=== PATIENT | female | born 1950 | race African-American/Black ===

== ENCOUNTER → 2016-10-17 | Outpatient (CLI) | payer MEDICARE, OTHER | LOC: WI 14:37 | PROVIDERS: ATTEND Internal Medicine | DX: Z12.31 Encounter for screening mammogram for malignant neoplasm of breast (principal) | CPT/HCPCS: 77067; G0202 ==

== ENCOUNTER → 2016-10-27 | Outpatient (CLI) | payer MEDICARE, OTHER | LOC: RAD 07:52 | PROVIDERS: ATTEND Student in an Organized Health Care Education/Training Program | DX: R91.1 Solitary pulmonary nodule (principal) | CPT/HCPCS: 71260; 82565 ==

== ENCOUNTER → 2017-10-12 | Outpatient (CLI) | payer MEDICARE, OTHER ==
--- NOTE | 2017-10-12 16:22 | WOMENS IMAGING REPORT ---
EXAM DESCRIPTION: BONE DENSITY HIP/SPINE COMPLETED DATE/TIME: 10/12/2017 1:54 pm REASON FOR STUDY: OSTEOPOROSIS Z12.31 ENCNTR SCREEN MAMMOGRAM FOR MALIGNANT NEOPLASM OF JOSE RAMON M81.0 AGE-RELATED OSTEOPOROSIS W/O CURRENT PATHOLOGICAL FRAC COMPARISON: None. TECHNIQUE: Dual-Energy X-ray Absorptiometry (DEXA) of the AP Spine and Hip. LIMITATIONS: None. FINDINGS: LUMBAR SPINE: The bone mineral density (BMD) measured from L1-L4 in the AP projection correlates with a T-score of -0.5, which is normal as defined by the World Health Organization. HIP: The bone mineral density (BMD) measured in the left hip correlates with a T-score of -0.3, which is n ormal as defined by the World Health Organization. IMPRESSION: 1. LUMBAR SPINE: Normal 2. HIP: Normal COMMENT: The World Health Organization defines low BMD as follows: T-score: Normal: Greater than -1.0 Osteopenia: Between -1.0 and -2.5 Osteoporosis: Less than -2.5 without fractures Established osteoporosis: Less than -2.5 with fractures In general, you may wish to consider: Diagnosis Treatment Follow-up DEXA Normal BMD Prevention 2-3 years Osteopenia Prevention/Therapy 1-2 years Osteoporosis Therapy Yearly TECHNICAL DOCUMENTATION: JOB ID: [id number] [employer]- All Rights Reserved Reading location - IP/workstation name: [email or web address]
--- NOTE | 2017-10-12 16:23 | WOMENS IMAGING REPORT ---
EXAM DESCRIPTION: 3D SCREENING MAMMO BILAT COMPLETED DATE/TIME: 10/12/2017 1:54 pm REASON FOR STUDY: SCREENING MAMMO Z12.31 ENCNTR SCREEN MAMMOGRAM FOR MALIGNANT NEOPLASM OF JOSE RAMON M81. 0 AGE-RELATED OSTEOPOROSIS W/O CURRENT PATHOLOGICAL FRAC COMPARISON: 10/17/2016 and 08/22/2015. TECHNIQUE: Standard craniocaudal and mediolateral oblique views of each breast recorded using digita l acquisition and breast tomosynthesis. LIMITATIONS: None. FINDINGS: RIGHT BREAST MASSES: No suspicious masses. CALCIFICATIONS: No new or suspicious calcifications. ARCHITECTURAL DISTORTION: None. DEVELOPING DENSITY: None. ASYMMETRY: None noted. OTHER: No other significant findings. LEFT BREAST MASSES: No suspicious masses. CALCIFICATIONS: No new or suspicious calcifications. ARCHITECTURAL DISTORTION: None. DEVELOPING DENSITY: Developing density in the upper inner breast, located 7 to 8 cm from the nipple. ASYMMETRY: None noted. OTHER: No other significant findings. Read with the assistance of CAD. .[facility] - R2 Cenova Version 1.3 .[facility] Imaging - R2 Cenova Version 1.3 .[facility] - R2 Cenova Version 2.4 .[facility] - R2 Cenova Version 2.4 .[facility] - R2 Lamp Shade Joiner Version 9.2 IMPRESSION: Developing density in the left breast. Stable mammographic appearance of the right ade st. BREAST DENSITY: b. There are scattered areas of fibroglandular density. BIRAD: 0 Incomplete: Needs Additional Imaging Evaluation and/or prior Mammograms for Comparison. RECOMMENDATION: RECOMMENDED FOLLOW-UP: Recommend additional evaluation with compression breast tomos ynthesis views of the left breast and ultrasound of the left breast. Recommend routine screening brad mography of the right breast. The patient will be contacted for additional imaging. COMMENT: The patient has been notified of the results by letter per SA requirements. Additional no tification policies are in place for contacting patient with suspicious or incomplete findings. Quality ID #[id number]: The [employer] recommends an annual screening mammogram for women aged 40 years or over. This facility utilizes a reminder system to ensure that all patients receive reminder letters, and/or direct phone calls for appointments. This includes reminders for routine scr eening mammograms, diagnostic mammograms, or other Breast Imaging Interventions when appropriate. Th is patient will be placed in the appropriate reminder system. The [employer] (ACR) has developed recommendations for screening MRI of the breast s in certain patient populations, to be used in conjunction with mammography. Breast MRI surveillanc e may be appropriate for women with more than 20% lifetime risk of developing breast cancer as deter mined by genetic testing, significant family history of the disease, or history of mantle radiation f or Hodgkins Disease. ACR Practice Guidelines 2008. DBT Technology DBT is a type of tomographic mammography. With conventional mammography, overlapping breast tissue ma y make lesions difficult to detect, even with good compression. DBT uses an x-ray tube that rotates a round the breast, taking images at different angles. These images are then combined to create thin sl ices of the breast that the radiologist can view as a 3D reconstruction. The Blendagram unit can perform full-field digital mammograms (2D imaging); or DBT (3D imaging); or both, in a combination mode that quickly performs both the mammogram and the tomosynthesis scan while the breast is still compressed. PQRS 6045F: Fluoroscopic imaging is not utilized for breast tomosynthesis. TECHNICAL DOCUMENTATION: FINDING NUMBER: (1) ASSESSMENT: (1) JOB ID: [id number] [employer]- All Rights Reserved Reading location - IP/workstation name: [email or web address]
== END ==
LOC: WI 13:22
PROVIDERS: ATTEND Student in an Organized Health Care Education/Training Program
DX: Z12.31 Encounter for screening mammogram for malignant neoplasm of breast (principal); M81.0 Age-related osteoporosis without current pathological fracture
CPT/HCPCS: 77063; 77067; 77080

== ENCOUNTER → 2017-10-15 | Outpatient (CLI) | payer MEDICARE, OTHER ==
--- NOTE | 2017-10-15 11:33 | WOMENS IMAGING REPORT ---
EXAM DESCRIPTION: 3D DX MAMMO LEFT UNILAT; U/S BREAST UNILAT LIMITED COMPLETED DATE/TIME: 10/15/2017 10:02 am; 10/15/2017 10:49 am REASON FOR STUDY: UNSPECIFIED LUMP; N63.22; LEFT BREAST DENSITY COMPARISON: 10/12/2017 and 10/17/2016. TECHNIQUE: MLO, cc, and compression MLO and CC images acquired with tomosynthesis. LIMITATIONS: None. FINDINGS: BREAST: left MASSES: No suspicious masses. CALCIFICATIONS: No new or suspicious calcifications. ARCHITECTURAL DISTORTION: None. DEVELOPING DENSITY: Developing density seen on previous screening mammography is less conspicuous on additional imaging. ASYMMETRY: None noted. OTHER: No other significant findings. BREAST ULTRASOUND: TECHNIQUE: Static and dynamic grayscale images acquired of the left breast in the specific areas of c linical/mammographic concern. Selected color Doppler images recorded. ELASTOGRAPHY PERFORMED: No. LIMITATIONS: None. FINDINGS: MASS: 3 to 4 mm hypoechoic area in the 12 o'clock location with distal shadowing. ELASTOGRAPHY CHARACTERISTICS: Not applicable. OTHER: No other significant finding. IMPRESSION: Developing density is less conspicuous on additional imaging with no discrete underlying lesion. The finding on ultrasound appears to be a benign calcification in this region, small calcif ied oil cyst. BREAST DENSITY: b. There are scattered areas of fibroglandular density. BIRAD: 3 Probably benign finding. Initial short-interval follow-up suggested. RECOMMENDATION: RECOMMENDED FOLLOW UP: Birads 3: The patient will return in 6 months for follow-up i holger. SPECIFIC INTERVENTION/IMAGING/CONSULTATION RECOMMENDED:The patient will return for 6 month follow-up diagnostic mammography(tomosynthesis) and targeted breast ultrasound. COMMUNICATION:The imaging findings were not discussed with the patient. Her referring provider has be en notified of the findings. COMMENT: The patient has been notified of the results by letter per SA requirements. Additional no tification policies are in place for contacting patient with suspicious or incomplete findings. Quality ID #225: The [employer] recommends an annual screening mammogram for women aged 40 years or over. This facility utilizes a reminder system to ensure that all patients receive reminder letters, and/or direct phone calls for appointments. This includes reminders for routine scr eening mammograms, diagnostic mammograms, or other Breast Imaging Interventions when appropriate. Th is patient will be placed in the appropriate reminder system. The [employer] (ACR) has developed recommendations for screening MRI of the breast s in certain patient populations, to be used in conjunction with mammography. Breast MRI surveillanc e may be appropriate for women with more than 20% lifetime risk of developing breast cancer as deter mined by genetic testing, significant family history of the disease, or history of mantle radiation f or Hodgkins Disease. ACR Practice Guidelines 2008. DBT Technology DBT is a type of tomographic mammography. With conventional mammography, overlapping breast tissue ma y make lesions difficult to detect, even with good compression. DBT uses an x-ray tube that rotates a round the breast, taking images at different angles. These images are then combined to create thin sl ices of the breast that the radiologist can view as a 3D reconstruction. The [employer] unit can perform full-field digital mammograms (2D imaging); or DBT (3D imaging); or both, in a combination mode that quickly performs both the mammogram and the tomosynthesis scan while the breast is still compressed. PQRS 6045F: Fluoroscopic imaging is not utilized for breast tomosynthesis. TECHNICAL DOCUMENTATION: FINDING NUMBER: (1) ASSESSMENT: (1) JOB ID: [id number] [employer]- All Rights Reserved Reading location - IP/workstation name: [email or web address]
== END ==
LOC: WI 09:40
PROVIDERS: ATTEND Student in an Organized Health Care Education/Training Program
DX: N63.22 Unspecified lump in the left breast, upper inner quadrant (principal)
CPT/HCPCS: 76642; 77065; G0279

== ENCOUNTER → 2018-06-01 | Outpatient (CLI) | payer MEDICARE, OTHER ==
--- NOTE | 2018-06-01 12:18 | WOMENS IMAGING REPORT ---
EXAM DESCRIPTION: 3D DX MAMMO LEFT UNILAT; U/S BREAST UNILAT LIMITED COMPLETED DATE/TIME: 06/01/2018 10:41 am; 06/01/2018 11:04 am REASON FOR STUDY: LEFT BREAST 6 MONTH FOLLOW UP N63.22; LT BREAST 6 MONTH FOLLOW UP N63.22 N63.20 U NSPECIFIED LUMP IN THE LEFT BREAST, UNSPECIFIED QUAD COMPARISON: 10/15/2017, 10/12/2017, 10/17/2016, 08/22/2015, 01/18/2014, and 04/13/2012. TECHNIQUE: Standard craniocaudal and mediolateral oblique images of the breast recorded using digita l acquisition and breast tomosynthesis. Additional true lateral image acquired with tomosynthesis. LIMITATIONS: None. FINDINGS: BREAST: left MASSES: No suspicious masses. CALCIFICATIONS: No new or suspicious calcifications. ARCHITECTURAL DISTORTION: None. DEVELOPING DENSITY: None. ASYMMETRY: Vague focal density in the central breast. No discrete lesion on tomosynthesis images. OTHER: No other significant findings. Read with the assistance of CAD. .[facility] - R2 Cenova Version 1.3 .[facility] Imaging - R2 Cenova Version 1.3 .[facility] Imaging - R2 Cenova Version 2.4 .[facility] [place] R2 Cenova Version 2.4 .[facility] - R2 Chancellor Version 9.2 BREAST ULTRASOUND: TECHNIQUE: Static and dynamic grayscale images acquired of the left breast in the specific areas of c linical/mammographic concern. Selected color Doppler images recorded. ELASTOGRAPHY PERFORMED: No. LIMITATIONS: None. FINDINGS: MASS: In the superior breast there is a small 3 mm cyst as well as a focal 3 mm calcification. No ch roberto. No solid mass identified. Normal glandular tissue. ELASTOGRAPHY CHARACTERISTICS: Not applicable. OTHER: No other significant finding. IMPRESSION: Vague density in the central breast with no discrete mass on tomosynthesis images and no worrisome sonographic findings. This presumably represents an area of focal parenchyma. Similar fi ndings on several of the prior studies. BREAST DENSITY: b. There are scattered areas of fibroglandular density. BIRAD: 2 Benign findings. RECOMMENDATION: RECOMMENDED FOLLOW UP: Birads 1 or 2: The patient should resume routine screening . SPECIFIC INTERVENTION/IMAGING/CONSULTATION RECOMMENDED:No additional intervention/ imaging/consultati on needed at this time. COMMUNICATION:The imaging findings were not discussed with the patient. Her referring provider has be en notified of the findings. COMMENT: The patient has been notified of the results by letter per SA requirements. Additional no tification policies are in place for contacting patient with suspicious or incomplete findings. Quality ID #[id number]: The [employer] recommends an annual screening mammogram for women aged 40 years or over. This facility utilizes a reminder system to ensure that all patients receive reminder letters, and/or direct phone calls for appointments. This includes reminders for routine scr eening mammograms, diagnostic mammograms, or other Breast Imaging Interventions when appropriate. Th is patient will be placed in the appropriate reminder system. The [employer] (ACR) has developed recommendations for screening MRI of the breast s in certain patient populations, to be used in conjunction with mammography. Breast MRI surveillanc e may be appropriate for women with more than 20% lifetime risk of developing breast cancer as deter mined by genetic testing, significant family history of the disease, or history of mantle radiation f or Hodgkins Disease. ACR Practice Guidelines 2008. DBT Technology DBT is a type of tomographic mammography. With conventional mammography, overlapping breast tissue ma y make lesions difficult to detect, even with good compression. DBT uses an x-ray tube that rotates a round the breast, taking images at different angles. These images are then combined to create thin sl ices of the breast that the radiologist can view as a 3D reconstruction. The HackerHAND unit can perform full-field digital mammograms (2D imaging); or DBT (3D imaging); or both, in a combination mode that quickly performs both the mammogram and the tomosynthesis scan while the breast is still compressed. PQRS 6045F: Fluoroscopic imaging is not utilized for breast tomosynthesis. TECHNICAL DOCUMENTATION: FINDING NUMBER: (1) ASSESSMENT: (1) JOB ID: [id number] [employer]- All Rights Reserved Reading location - IP/workstation name: [facility]
--- NOTE | 2018-06-01 12:18 | WOMENS IMAGING REPORT ---
EXAM DESCRIPTION: 3D DX MAMMO LEFT UNILAT; U/S BREAST UNILAT LIMITED COMPLETED DATE/TIME: 06/01/2018 10:41 am; 06/01/2018 11:04 am REASON FOR STUDY: LEFT BREAST 6 MONTH FOLLOW UP N63.22; LT BREAST 6 MONTH FOLLOW UP N63.22 N63.20 U NSPECIFIED LUMP IN THE LEFT BREAST, UNSPECIFIED QUAD COMPARISON: 10/15/2017, 10/12/2017, 10/17/2016, 08/22/2015, 01/18/2014, and 04/13/2012. TECHNIQUE: Standard craniocaudal and mediolateral oblique images of the breast recorded using digita l acquisition and breast tomosynthesis. Additional true lateral image acquired with tomosynthesis. LIMITATIONS: None. FINDINGS: BREAST: left MASSES: No suspicious masses. CALCIFICATIONS: No new or suspicious calcifications. ARCHITECTURAL DISTORTION: None. DEVELOPING DENSITY: None. ASYMMETRY: Vague focal density in the central breast. No discrete lesion on tomosynthesis images. OTHER: No other significant findings. Read with the assistance of CAD. .[facility] - R2 Cenova Version 1.3 .[facility] Imaging - R2 Cenova Version 1.3 .[facility] Imaging - R2 Cenova Version 2.4 .[facility] - R2 Cenova Version 2.4 .[facility] - R2 Aircraft Cleaner Version 9.2 BREAST ULTRASOUND: TECHNIQUE: Static and dynamic grayscale images acquired of the left breast in the specific areas of c linical/mammographic concern. Selected color Doppler images recorded. ELASTOGRAPHY PERFORMED: No. LIMITATIONS: None. FINDINGS: MASS: In the superior breast there is a small 3 mm cyst as well as a focal 3 mm calcification. No ch roberto. No solid mass identified. Normal glandular tissue. ELASTOGRAPHY CHARACTERISTICS: Not applicable. OTHER: No other significant finding. IMPRESSION: Vague density in the central breast with no discrete mass on tomosynthesis images and no worrisome sonographic findings. This presumably represents an area of focal parenchyma. Similar fi ndings on several of the prior studies. BREAST DENSITY: b. There are scattered areas of fibroglandular density. BIRAD: 2 Benign findings. RECOMMENDATION: RECOMMENDED FOLLOW UP: Birads 1 or 2: The patient should resume routine screening . SPECIFIC INTERVENTION/IMAGING/CONSULTATION RECOMMENDED:No additional intervention/ imaging/consultati on needed at this time. COMMUNICATION:The imaging findings were not discussed with the patient. Her referring provider has be en notified of the findings. COMMENT: The patient has been notified of the results by letter per SA requirements. Additional no tification policies are in place for contacting patient with suspicious or incomplete findings. Quality ID #225: The [employer] recommends an annual screening mammogram for women aged 40 years or over. This facility utilizes a reminder system to ensure that all patients receive reminder letters, and/or direct phone calls for appointments. This includes reminders for routine scr eening mammograms, diagnostic mammograms, or other Breast Imaging Interventions when appropriate. Th is patient will be placed in the appropriate reminder system. The [employer] (ACR) has developed recommendations for screening MRI of the breast s in certain patient populations, to be used in conjunction with mammography. Breast MRI surveillanc e may be appropriate for women with more than 20% lifetime risk of developing breast cancer as deter mined by genetic testing, significant family history of the disease, or history of mantle radiation f or Hodgkins Disease. ACR Practice Guidelines 2008. DBT Technology DBT is a type of tomographic mammography. With conventional mammography, overlapping breast tissue ma y make lesions difficult to detect, even with good compression. DBT uses an x-ray tube that rotates a round the breast, taking images at different angles. These images are then combined to create thin sl ices of the breast that the radiologist can view as a 3D reconstruction. The EVOF[employer] unit can perform full-field digital mammograms (2D imaging); or DBT (3D imaging); or both, in a combination mode that quickly performs both the mammogram and the tomosynthesis scan while the breast is still compressed. PQRS 6045F: Fluoroscopic imaging is not utilized for breast tomosynthesis. TECHNICAL DOCUMENTATION: FINDING NUMBER: (1) ASSESSMENT: (1) JOB ID: [id number] [employer]- All Rights Reserved Reading location - IP/workstation name: [facility]
== END ==
LOC: WI 13:48
PROVIDERS: ATTEND Student in an Organized Health Care Education/Training Program
DX: N60.02 Solitary cyst of left breast (principal)
CPT/HCPCS: 76642; 77065; G0279

== ENCOUNTER 2019-02-25 17:37 | Observation (INO) | payer MEDICARE ==
--- NOTE | 2019-02-25 18:07 | ER Document Report ---
ED Medical Screen (RME) - General Chief Complaint: Altered Mental Status Stated Complaint: WEAKNESS Time Seen by Provider: 02/25/19 17:58 Primary Care Provider: BONNIE JENSEN DO [Primary Care Provider] - Follow up as needed Notes: Patient is a 68-year-old female presents to the emergency department with her granddaughter for change in mental status. Granddaughter states around 11:00 this morning was last time she saw the patient "normal." States the patient stated she was going to take a nap. Granddaughter states she was out of the house for most of the day until she returned this afternoon. States this afternoon the patient was "not making any sense." Granddaughter states the patient was very slow to answer questions and feels as though her speech was slurred. Granddaughter is unsure of exactly what medications the patient is on if the patient took any medications today. GENERAL: Alert, slow to respond, aphasic. LUNGS: Clear to auscultation bilaterally, no wheezes, rales, or rhonchi. No respiratory distress. Patient is unable to tell me the correct date. Her speech is slowed as though she is intoxicated. I have greeted and performed a rapid initial assessment of this patient. A co mprehensive ED assessment and evaluation of the patient, analysis of test results and completion of the medical decision making process will be conducted by additional ED providers. I have specifically instructed the patient or family members with the patient to immediately return to any nursing staff should anything change in the patient's condition or with their chief complaint. This medical record was dictated with voice recognizing software. There may be grammatical, syntax errors that are unintended. TRAVEL OUTSIDE OF THE [place] IN LAST 30 DAYS: No - Related Data Allergies/Adverse Reactions: MOMO Inhibitors [Momo Inhibitors] Allergy (Verified 11/15/14 09:22) lisinopril [Lisinopril] Allergy (Verified 11/15/14 09:22) Past Medical History - Past Medical History Cardiac Medical History: Reports: Hx Hypercholesterolemia, Hx Hypertension Psychiatric Medical History: Reports: Hx Depression Past Surgical History: Reports: Hx Neurologic Surgery - acoustic neuroma - Immunizations Hx Diphtheria, Pertussis, Tetanus Vaccination: No Physical Exam - Vital signs Vitals: Temp Pulse Resp BP Pulse Ox 98.9 F 101 H 20 128/71 H 92 02/25/19 17:46 02/25/19 17:46 02/25/19 17:46 02/25/19 17:46 02/25/19 17:46 Course - Vital Signs Vital signs: Temp Pulse Resp BP Pulse Ox 98.9 F 101 H 20 128/71 H 92 02/25/19 17:46 02/25/19 17:46 02/25/19 17:46 02/25/19 17:46 02/25/19 17:46 Doctor's Discharge - Discharge Referrals: BONNIE JENSEN, [Primary Care Provider] - Follow up as needed
--- NOTE | 2019-02-25 18:32 | RADIOLOGY REPORT (SQ) ---
EXAM DESCRIPTION: CT HEAD WITHOUT COMPLETED DATE/TIME: 02/25/2019 6:22 pm REASON FOR STUDY: LOC COMPARISON: None. TECHNIQUE: Axial images acquired through the brain without intravenous contrast. Images reviewed wi th bone, brain and subdural windows. 09/16/2012 Images stored on PACS. All CT scanners at this facility use dose modulation, iterative reconstruction, and/or weight based d osing when appropriate to reduce radiation dose to as low as reasonably achievable (ALARA). [facility]: Dose Right [facility]: CareDose [facility]: Dose Right [facility]: Teradose 4D [facility]: Smart [employer] RADIATION DOSE: CT Rad equipment meets quality standard of care and radiation dose reduction techniq ues were employed. CTDIvol: 53.2 mGy. DLP: 937 mGy-cm. mGy. LIMITATIONS: None. FINDINGS: VENTRICLES: Normal size and contour. CEREBRUM: No masses. No hemorrhage. No midline shift. No evidence for acute infarction. Normal gra y/white matter differentiation. No areas of low density in the white matter. CEREBELLUM: No masses. No hemorrhage. No alteration of density. No evidence for acute infarction. EXTRAAXIAL SPACES: No fluid collections. No masses. ORBITS AND GLOBE: No intra- or extraconal masses. Normal contour of globe without masses. CALVARIUM: No fracture. PARANASAL SINUSES: No fluid or mucosal thickening. SOFT TISSUES: No mass or hematoma. OTHER: No other significant finding. IMPRESSION: NORMAL BRAIN CT WITHOUT CONTRAST. EVIDENCE OF ACUTE STROKE: NO. COMMENT: Quality ID # [id number]: Final reports with documentation of one or more dose reduction techniques (e.g., Automated exposure control, adjustment of the mA and/or kV according to patient size, use of iterative reconstruction technique) TECHNICAL DOCUMENTATION: JOB ID: [id number] [employer]- All Rights Reserved Reading location - IP/workstation name: [email or web address]
--- NOTE | 2019-02-25 18:32 | RADIOLOGY REPORT (SQ) ---
EXAM DESCRIPTION: CHEST SINGLE VIEW COMPLETED DATE/TIME: 02/25/2019 6:24 pm REASON FOR STUDY: ALOC COMPARISON: 10/29/2009 EXAM PARAMETERS: NUMBER OF VIEWS: One view. TECHNIQUE: Single frontal radiographic view of the chest acquired. RADIATION DOSE: NA LIMITATIONS: None. FINDINGS: LUNGS AND PLEURA: No opacities, masses or pneumothorax. No pleural effusion. MEDIASTINUM AND HILAR STRUCTURES: No masses. Contour normal. HEART AND VASCULAR STRUCTURES: Heart normal in size. Normal vasculature. BONES: No acute findings. HARDWARE: None in the chest. OTHER: No other significant finding. IMPRESSION: NO ACUTE RADIOGRAPHIC FINDING IN THE CHEST. TECHNICAL DOCUMENTATION: JOB ID: [id number] [employer]- All Rights Reserved Reading location - IP/workstation name: [email or web address]
--- NOTE | 2019-02-25 19:44 | ER Document Report ---
ED General - General Chief Complaint: Altered Mental Status Stated Complaint: WEAKNESS Time Seen by Provider: 02/25/19 17:58 Notes: Patient is a 68-year-old female that presents to the emergency department for chief complaint of slurred speech and weakness. Patient apparently was last seen normal around 1030 this morning, when her family left to leave the house, other out they called to see how she was doing and she did not pecan picker the kee[place] ne, so they came back to the house, and when they found her she was having slurred speech, seemed somewhat confused, slow to answer questions, and they thought they noticed a right-sided facial droop as well so we decided to bring her to the emergency department. She has no prior history of stroke, at this time she is able to answer some questions, but is slow to answer them, and she does have slurred speech. She has a history of hypertension, and reports a history of acoustic neuroma status post surgery for that. She denies having any headache, lightheadedness, dizziness, but does state she has some numbness in her right leg, and feels weaker in her right leg compared to the left. She d enies having any chest pain, shortness of breath, difficulty breathing, nausea or vomiting. Past Medical History: Hypertension Past Surgical History: Surgery for acoustic neuroma Social History: Denies tobacco, alcohol or drug use. Family History: Reviewed and noncontributory for presenting illness Allergies: Reviewed, see documented allergy list. REVIEW OF SYSTEMS: Other than noted above, the 12 point review of systems was reviewed with the patient and were negative, all pertinent findings are included in the HPI. PHYSICAL EXAMINATION: Vital signs reviewed, nursing noted reviewed. GENERAL: Well-appearing, well-nourished and in no acute distress. HEAD: Atraumatic, normocephalic. EYES: Eyes appear normal, extraocular movements intact, sclera anicteric, conjunctiva are normal. ENT: nares patent, oropharynx clear without exudates. Moist mucous membranes. NECK: Normal range of motion, supple without lymphadenopathy LUNGS: Breath sounds clear to auscultation bilaterally and equal. No wheezes rales or rhonchi. HEART: Regular rate and rhythm without murmurs ABDOMEN: Soft, nontender, normoactive bowel sounds. No rebound, guarding, or rigidity. No masses appreciated. EXTREMITIES: Nontender, good range of motion, no pitting or edema. NEUROLOGICAL: NIH stroke scale score: 4, for mild dysarthria, mild aphasia, slight decreased sensation in the right lower extremity compared to the left, and for mild weakness in the right lower extremity compared to the left. With some drift. Patient is alert and oriented, slow to answer questions, but seems to understand, there is no inattention, visual deficits, or gaze palsy. PSYCH: Normal mood, normal affect. SKIN: Warm, Dry, normal turgor, no rashes or lesions noted on exposed skin TRAVEL OUTSIDE OF THE [place] IN LAST 30 DAYS: No - Related Data Allergies/Adverse Reactions: MOMO Inhibitors [Momo Inhibitors] Allergy (Verified 11/15/14 09:22) lisinopril [Lisinopril] Allergy (Verified 11/15/14 09:22) Past Medical History - Social History Smoking Status: Never Smoker Chew tobacco use (# tins/day): No Frequency of alcohol use: Occasional Drug Abuse: None Family History: None Patient has suicidal ideation: No Patient has homicidal ideation: No - Past Medical History Cardiac Medical History: Reports: Hx Hypercholesterolemia, Hx Hypertension Renal/ Medical History: Denies: Hx Peritoneal Dialysis Psychiatric Medical History: Reports: Hx Depression Past Surgical History: Reports: Hx Neurologic Surgery - acoustic neuroma - Immunizations Hx Diphtheria, Pertussis, Tetanus Vaccination: No Physical Exam - Vital signs Vitals: Temp Pulse Resp BP Pulse Ox 98.9 F 101 H 20 128/71 H 92 02/25/19 17:46 02/25/19 17:46 02/25/19 17:46 02/25/19 17:46 02/25/19 17:46 Course - Re-evaluation Re-evalutation: Patient seen and examined vital signs reviewed. Laboratory data and imaging were ordered as appropriate for the patient's presenting symptoms and complaint, with consideration of any critical or life threatening conditions that may be associated with their obtained history and exam as noted above. Results were reviewed when available and demonstrated negative CT imaging of the brain, blood pressure was remaining stable, blood work was otherwise unremarkable The patient was re-evaluated and was stable, symptoms seem to be slowly improving, patient was not a TPA candidate, she was nearly 6 hours out from her onset of symptoms, her last seen normal, and seems to be improving, and has a low NIH stroke scale score. Evaluation was most consistent with acute CVA, causing dysarthria, and aphasia and right-sided sensory deficit Results were discussed with the patient at this point after careful consideration I feel that that patient should be admitted to the hospital. This was discussed with the patient that it is in the best interest for their care to be admitted for further evaluation and management. Patient agreed with this plan of care. A call was placed to the admitting physician, Dr. Fulton who gra ciously accepted the patient onto their service. *Note is created using voice recognition software and may contain spelling, syntax or grammatical errors. Laboratory 02/25/19 02/25/19 02/25/19 18:06 20:02 20:02 WBC 7.0 RBC 4.35 Hgb 12.5 Hct 37.0 MCV 85 MCH 28.6 MCHC 33.7 RDW 15.4 H Plt Count 289 Seg Neutrophils % 41.6 L Lymphocytes % 47.6 H Monocytes % 7.3 Eosinophils % 1.8 Basophils % 1.7 Absolute Neutrophils 2.9 Absolute Lymphocytes 3.3 Absolute Monocytes 0.5 Absolute Eosinophils 0.1 Absolute Basophils 0.1 PT INR APTT Sodium 140.1 Potassium 4.3 Chloride 109 H Carbon Dioxide 26 Anion Gap 5 BUN 26 H Creatinine 0.73 Est GFR ( Amer) > 60 Est GFR (Non-Af Amer) > 60 Glucose 93 POC Glucose 108 Calcium 8.8 Total Bilirubin 0.1 L Direct Bilirubin 0.1 Neonat Total Bilirubin Not Reportable Neonat Direct Bilirubin Not Reportable Neonat Indirect Bili Not Reportable AST 20 ALT 28 Alkaline Phosphatase 58 Total Protein 6.5 Albumin 3.7 Serum Alcohol < 10 02/25/19 20:02 WBC RBC Hgb Hct MCV MCH MCHC RDW Plt Count Seg Neutrophils % Lymphocytes % Monocytes % Eosinophils % Basophils % Absolute Neutrophils Absolute Lymphocytes Absolute Monocytes Absolute Eosinophils Absolute Basophils PT 12.5 INR 0.93 APTT 24.7 Sodium Potassium Chloride Carbon Dioxide Anion Gap BUN Creatinine Est GFR ( Amer) Est GFR (Non-Af Amer) Glucose POC Glucose Calcium Total Bilirubin Direct Bilirubin Neonat Total Bilirubin Neonat Direct Bilirubin Neonat Indirect Bili AST ALT Alkaline Phosphatase Total Protein Albumin Serum Alcohol Chest X-Ray 02/25/19 00:00 IMPRESSION: NO ACUTE RADIOGRAPHIC FINDING IN THE CHEST. Head CT 02/25/19 18:03 IMPRESSION: NORMAL BRAIN CT WITHOUT CONTRAST. EVIDENCE OF ACUTE STROKE: NO. 0 - Vital Signs Vital signs: Temp Pulse Resp BP Pulse Ox 98.9 F 95 16 118/72 100 02/25/19 17:46 02/25/19 18:42 02/25/19 18:42 02/25/19 18:42 02/25/19 18:42 - Laboratory Result Diagrams: 02/25/19 20:02 02/25/19 20:02 Laboratory results interpreted by me: 02/25/19 02/25/19 20:02 20:02 RDW 15.4 H Seg Neutrophils % 41.6 L Lymphocytes % 47.6 H Chloride 109 H BUN 26 H Total Bilirubin 0.1 L Discharge - Discharge Clinical Impression: Acute CVA (cerebrovascular accident), Dysarthria Condition: Stable Disposition: ADMITTED INPATIENT Admitting Provider: Donaldo (Hospitalist) Unit Admitted: [facility]
[2019-02-25 20:18] LABS: ABSOLUTE BASOPHILS # (AUTO) 0.1 10^3/uL (0.0-0.2); ABSOLUTE EOSINOPHILS # (AUTO) 0.1 10^3/uL (0.0-0.6); ABSOLUTE LYMPHOCYTES (AUTO) 3.3 10^3/uL (0.5-4.7); ABSOLUTE MONOCYTES (AUTO) 0.5 10^3/uL (0.1-1.4); ABSOLUTE NEUT (AUTO) 2.9 10^3/uL (1.7-8.2); BASOPHILS % (AUTO) 1.7 % (0-2); EOSINOPHILS % (AUTO) 1.8 % (0-6); HEMOGLOBIN 12.5 g/dL (12.0-15.5); LYMPHOCYTES % (AUTO) 47.6 % (13-45); MEAN CORPUSCULAR HEMOGLOBIN 28.6 pg (27.0-33.4); MEAN CORPUSCULAR HGB CONC 33.7 g/dL (32.0-36.0); MEAN CORPUSCULAR VOLUME 85 fl (80-97); MONOCYTES % (AUTO) 7.3 % (3-13); PLATELET COUNT 289 10^3/uL (150-450); RED BLOOD COUNT 4.35 10^6/uL (3.72-5.28); RED CELL DISTRIBUTION WIDTH 15.4 % (11.5-14.0); SEGMENTED NEUTROPHILS % (AUTO) 41.6 % (42-78); TOTAL CELLS COUNTED % (AUTO) 100 %
[2019-02-25 20:29] LABS: INTERNATIONAL RATION (INR) 0.93; PROTHROMBIN TIME 12.5 SEC (11.4-15.4)
[2019-02-25 20:30] LABS: PARTIAL THROMBOPLASTIN TIME 24.7 SEC (23.5-35.8)
[2019-02-25 20:35] LABS: ALANINE AMINOTRANSFERASE 28 U/L (9-52); ALBUMIN 3.7 g/dL (3.5-5.0); ALKALINE PHOSPHATASE 58 U/L (38-126); ANION GAP 5 (5-19); ASPARTATE AMINO TRANSFERASE 20 U/L (14-36); BILIRUBIN,DIRECT 0.1 mg/dL (0.0-0.4); BILIRUBIN,TOTAL 0.1 mg/dL (0.2-1.3); BLOOD UREA NITROGEN 26 mg/dL (7-20); CALCIUM 8.8 mg/dL (8.4-10.2); CARBON DIOXIDE 26 mmol/L (22-30); CHLORIDE 109 mmol/L (98-107); GLUCOSE 93 mg/dL (75-110); POTASSIUM 4.3 mmol/L (3.6-5.0); TOTAL PROTEIN 6.5 g/dL (6.3-8.2)
[2019-02-25 20:37] LABS: ALCOHOL < 10 mg/dL (NONE DETECTED)
[2019-02-25] MEDS ORDERED: DOCUSATE SODIUM 100 MG CAPSULE PO PRN (22:24)
[2019-02-25] MEDS ORDERED: TEMAZEPAM 15 MG CAPSULE PO PRN (22:24)
[2019-02-25] MEDS ORDERED: ACETAMINOPHEN 325 MG TABLET PO PRN (22:24)
[2019-02-25] MEDS ORDERED: ACETAMINOPHEN 650 MG SUPP.RECT PR PRN (22:24)
[2019-02-25] MEDS ORDERED: ONDANSETRON HCL INJ/PF 4 MG/2 ML SDV IV PRN (22:24)
[2019-02-25] MEDS ORDERED: MAGNESIUM HYDROXIDE SUSP 30 ML UDCUP PO PRN (22:24)
[2019-02-25] MEDS ORDERED: METOPROLOL TARTRATE PF/INJ 5 MG/5 ML SDV IV PRN (22:35)
[2019-02-25] MEDS ORDERED: NALBUPHINE HCL INJ 10 MG/1 ML AMPULE IV PRN (22:35)
[2019-02-25] MEDS ORDERED: HYDRALAZINE HCL INJ/PF 20 MG/1 ML SDV IV PRN (22:35)
--- NOTE | 2019-02-25 23:13 | EKG REPORT ---
SEVERITY:- BORDERLINE ECG - SINUS RHYTHM BORDERLINE T ABNORMALITIES, INFERIOR LEADS : Confirmed by: Christian Pena 25-Feb-2019 23:12:41
[2019-02-26 01:45] LABS: APPEARANCE,URINE SLIGHTLY-CLOUDY; BILIRUBIN,URINE NEGATIVE (NEGATIVE); COLOR,URINE YELLOW; GLUCOSE, URINE NEGATIVE (NEGATIVE); KETONES,URINE NEGATIVE (NEGATIVE); LEUKOCYTE ESTERASE,URINE TRACE (NEGATIVE); NITRITE,URINE NEGATIVE (NEGATIVE); PROTEIN,URINE NEGATIVE (NEGATIVE); URINE SPECIFIC GRAVITY 1.025; UROBILINOGEN,URINE NEGATIVE mg/dL (<2.0)
[2019-02-26 02:19] LABS: URINE AMPHETAMINES SCREEN NEGATIVE; URINE BARBITURATES SCREEN NEGATIVE; URINE BENZODIAZEPINES SCREEN NEGATIVE; URINE COCAINE SCREEN NEGATIVE; URINE METHADONE SCREEN NEGATIVE; URINE PHENCYCLIDINE SCREEN NEGATIVE
[2019-02-26 02:26] LABS: URINE MARIJUANA (THC) SCREEN UNCONFIRMED POSITIVE
--- NOTE | 2019-02-26 02:30 | PDOC H&P ---
History of Present Illness Admission Date/PCP: 02/25/19 20:58 BONNIE JENSEN DO Patient complains of: Dysarthria History of Present Illness: JOHN STEINBERG is a 68 year old female who presents the emergency room with acute dysarthria. Patient and family relate that she was in her usual state of health at about 11 AM this morning when she went to lay down for a nap. This afternoon her granddaughter returned home after being out of the house for most of the day and found the patient seemingly confused and slurring her speech. Patient indicates that she has moderate to severe difficulty saying what she wants to say and notes that her speech seems slurred. The patient and granddaug hter deny any accompanying or associated symptoms. The patient denies prior similar episodes and has not identified any aggravating or ameliorating factors for her acute dysarthria. In the emergency room patient was found to have a CT scan of the head negative for acute intracranial hemorrhage. She was also found to have mild right-sided weakness as well as dysarthria and expressive aphasia. Patient was subsequently admitted hospital for further evaluation and treatment. Past Medical History Cardiac Medical History: Reports: Hypertension Denies: Coronary Artery Disease, Myocardial Infarction Pulmonary Medical History: Denies: Asthma, Chronic Obstructive Pulmonary Disease (COPD) EENT Medical History: Denies: Cataracts, Ears - Hearing aids Neurological Medical History: Denies: Hemorrhagic CVA, Ischemic CVA, Multiple Sclerosis, Seizures Endocrine Medical History: Reports: Obesity Denies: Diabetes Mellitus Type 1, Diabetes Mellitus Type 2, Hyperthyroidism, Hypothyroidism Renal/ Medical History: Denies: Chronic Kidney Disease, Nephrolithiasis Malignancy Medical History: Reports: None GI Medical History: Denies: Cirrhosis, Hepatitis Musculoskeltal Medical History: Reports: Arthritis - Degenerative arthritis of the spine Denies: Fibromyalgia Skin Medical History: Denies: Eczema, Psoriasis Psychiatric Medical History: Reports: Depression Denies: Alcohol Dependency, Substance Abuse, Tobacco Dependency Traumatic Medical History: Reports: None Hematology: Denies: Anemia, Bleeding Tendencies Infectious Medical History: Reports: None Past Surgical History Past Surgical History: Reports: Tubal Ligation, Other - Right acoustic neuroma Social History Information Source: Patient Lives with: Family Smoking Status: Former Smoker - Remote history Frequency of Alcohol Use: None Hx Recreational Drug Use: Yes - uses for pain Drugs: Marijuana Hx Prescription Drug Abuse: No - Advance Directive Resuscitation Status: Full Code Surrogate healthcare decision maker:: Javier Steinberg Family History Family History: CAD, DM, Hypertension, Other - Congestive heart failure. denies: Malignancy Parental Family History Reviewed: Yes Children Family History Reviewed: No Sibling(s) Family History Reviewed.: Yes Medication/Allergy Home Medications: Clonidine HCl [Catapres 0.1 mg Tablet] 0.1 mg PO TID 02/28/13 Fluoxetine HCl [Prozac] 40 mg PO DAILY 02/28/13 Allergies/Adverse Reactions: MOMO Inhibitors [Momo Inhibitors] Allergy (Verified 11/15/14 09:22) lisinopril [Lisinopril] Allergy (Verified 11/15/14 09:22) Review of Systems Constitutional: ABSENT: chills, fever(s) Eyes: ABSENT: visual disturbances, other - Eye pain Ears: ABSENT: hearing changes, other - Ear pain Nose, Mouth, and Throat: ABSENT: mouth pain, sore throat Cardiovascular: ABSENT: chest pain, dyspnea on exertion, palpitations Respiratory: ABSENT: cough, dyspnea Gastrointestinal: ABSENT: abdominal pain, constipation, diarrhea, nausea, vomiting Musculoskeletal: ABSENT: back pain, joint swelling, muscle weakness Integumentary: ABSENT: lesions, rash Neurological: PRESENT: as per HPI, abnormal speech - Slow and slurred speech, confusion - Difficulty saying what she means. ABSENT: abnormal gait, abnormal movements, convulsions, focal weakness, numbness, paresthesias, tingling Psychiatric: PRESENT: depression. ABSENT: anxiety Endocrine: ABSENT: cold intolerance, heat intolerance Hematologic/Lymphatic: ABSENT: easy bleeding, easy bruising Physical Exam Vital Signs: Temp Pulse Resp BP Pulse Ox 98.9 F 95 16 118/72 100 02/25/19 17:46 02/25/19 18:42 02/25/19 18:42 02/25/19 18:42 02/25/19 18:42 Intake & Output 02/23/19 02/24/19 02/25/19 23:59 23:59 23:59 Weight 81.5 kg General appearance: PRESENT: no acute distress, cooperative Head exam: PRESENT: atraumatic, normocephalic Eye exam: PRESENT: conjunctiva pink, EOMI, PERRLA. ABSENT: conjunctival injection, nystagmus, scleral icterus Ear exam: PRESENT: normal external ear exam. ABSENT: bleeding, drainage Mouth exam: PRESENT: dry mucosa, neck supple Neck exam: PRESENT: full ROM. ABSENT: JVD, meningismus, thyromegaly, tracheal deviation Respiratory exam: PRESENT: clear to auscultation chanell, symmetrical, unlabored Cardiovascular exam: PRESENT: RRR. ABSENT: clicks, gallop, rubs Pulses: PRESENT: normal radial pulses, normal dorsalis pedis pul Vascular exam: PRESENT: normal capillary refill. ABSENT: pallor GI/Abdominal exam: PRESENT: normal bowel sounds, soft Rectal exam: PRESENT: deferred Extremities exam: ABSENT: joint swelling, pedal edema Musculoskeletal exam: ABSENT: deformity, dislocation, tenderness Neurological exam: PRESENT: alert, oriented to person, oriented to place, oriented to time, oriented to situation, motor sensory deficit - No weakness on gross exam of right upper and lower extremities., aphasic - Minimal expressive aphasia. ABSENT: CN II-XII grossly intact - Mild right facial weakness, minimal dysarthria noted Psychiatric exam: PRESENT: appropriate affect, normal mood Skin exam: PRESENT: dry, intact, warm. ABSENT: jaundice, rash, urticaria Results Laboratory Results: 02/25/19 20:02 02/25/19 20:02 02/25/19 02/25/19 20:02 20:02 WBC 7.0 RBC 4.35 Hgb 12.5 Hct 37.0 MCV 85 MCH 28.6 MCHC 33.7 RDW 15.4 H Plt Count 289 Seg Neutrophils % 41.6 L Lymphocytes % 47.6 H Monocytes % 7.3 Eosinophils % 1.8 Basophils % 1.7 Absolute Neutrophils 2.9 Absolute Lymphocytes 3.3 Absolute Monocytes 0.5 Absolute Eosinophils 0.1 Absolute Basophils 0.1 Sodium 140.1 Potassium 4.3 Chloride 109 H Carbon Dioxide 26 Anion Gap 5 BUN 26 H Creatinine 0.73 Est GFR ( Amer) > 60 Est GFR (Non-Af Amer) > 60 Glucose 93 Calcium 8.8 Total Bilirubin 0.1 L AST 20 ALT 28 Alkaline Phosphatase 58 Total Protein 6.5 Albumin 3.7 Impressions: Chest X-Ray 02/25/19 00:00 IMPRESSION: NO ACUTE RADIOGRAPHIC FINDING IN THE CHEST. Head CT 02/25/19 18:03 IMPRESSION: NORMAL BRAIN CT WITHOUT CONTRAST. EVIDENCE OF ACUTE STROKE: NO. Assessment and Plan - Diagnosis (1) Acute ischemic cerebrovascular accident (CVA) involving left middle cerebral artery territory Is this a current diagnosis for this admission?: Yes Plan: Patient will be entered into the stroke protocol. She will receive a MRI of the head as well as a carotid Doppler and an echocardiogram. PT/OT/speech therapy will evaluate the patient and patient will be seen by the stroke nurse. She will be monitored closely on IMCU. She will undergo the routine stroke protocol and will be started on all appropriate medications. (2) Essential hypertension Is this a current diagnosis for this admission?: Yes Plan: Patient will be started on a new antihypertensive regiment using amlodipine, with close monitoring of her blood pressure throughout her hospital course. (3) Degenerative arthritis of lumbar spine Qualifiers: Spinal osteoarthritis complication: unspecified spinal osteoarthritis Qualified Code(s): M47.816 - Spondylosis without myelopathy or radiculopathy, lumbar region Is this a current diagnosis for this admission?: Yes Plan: Patient will be treated with acetaminophen 650 mg p.o. every 4 hours as needed for osteoarthritis pain and will use Nubain 10 mg IV every 3 hours on a as needed basis for pain of 3-5 on a five-point pain scale. The patient generally self medicates for this with the use of marijuana at home. (4) Dysthymia Is this a current diagnosis for this admission?: Yes Plan: Patient will be continued on her current antidepressant medication. - Time Time Spent with patient: 25-34 minutes Medications reviewed and adjusted accordingly: Yes Anticipated discharge: Home with Homehealth, SNF, Acute Rehab - Inpatient Certification Based on my medical assessment, after consideration of the patient's comorbidities, presenting symptoms, or acuity I expect that the services needed warrant INPATIENT care.: Yes I certify that my determination is in accordance with my understanding of Medicare's requirements for reasonable and necessary INPATIENT services [42 CFR 412.3e].: Yes Medical Necessity: Need Close Monitoring Due to Risk of Patient Decompensation, Need For Continuous Telemetry Monitoring, Need for Neurological Checks, Risk of Complication if Not Cared For in Hospital
--- NOTE | 2019-02-26 02:34 | ADVANCED CARE ---
- Diagnosis (1) Acute ischemic cerebrovascular accident (CVA) involving left middle cerebral artery territory Diagnosis Current: Yes (2) Essential hypertension Diagnosis Current: Yes (3) Degenerative arthritis of lumbar spine Diagnosis Current: Yes (4) Dysthymia Diagnosis Current: Yes Attendance: The patient, her nurse Kim Solano and myself. Resuscitation Status: Full Code Discussion: After a discussion the patient is determined that she wishes to be a DNR & DNI resuscitation status for this admission and any further admissions. We have discussed that she should have an in-depth discussion of this with her daughter Javier. Additionally she has named Javier Flores as her designated surrogate medical decision maker. Care Planning Goals: 1. Patient will be DNR/DNI CODE STATUS for this hospitalization and all future hospitalization until further notification. 2. Javier Flores is her designated surrogate medical decision maker. Document(s) Completed: The following information be entered into the patient's current medical record, permanent medical record and current orders via EMR entry: 1. Patient will be DNR/DNI CODE STATUS for this hospitalization and all future hospitalization until further notification. 2. Javier Flores is her designated surrogate medical decision maker. Time Spent: 17 minutes
[2019-02-26] MEDS ORDERED: HEPARIN SOD (PORCINE) 5,000 UNIT/ML 1 ML VIAL SUBCUT SCH (06:00)
[2019-02-26 06:11] LABS: HEMATOCRIT 34.8 % (36.0-47.0); HEMOGLOBIN 11.8 g/dL (12.0-15.5); MEAN CORPUSCULAR HEMOGLOBIN 28.9 pg (27.0-33.4); MEAN CORPUSCULAR HGB CONC 33.9 g/dL (32.0-36.0); MEAN CORPUSCULAR VOLUME 85 fl (80-97); PLATELET COUNT 266 10^3/uL (150-450); RED BLOOD COUNT 4.09 10^6/uL (3.72-5.28); RED CELL DISTRIBUTION WIDTH 15.8 % (11.5-14.0); WHITE BLOOD COUNT 7.3 10^3/uL (4.0-10.5)
[2019-02-26 06:33] LABS: ANION GAP 5 (5-19); BLOOD UREA NITROGEN 25 mg/dL (7-20); CALCIUM 8.8 mg/dL (8.4-10.2); CARBON DIOXIDE 26 mmol/L (22-30); CHLORIDE 110 mmol/L (98-107); CHOLESTEROL 185.18 mg/dL (0-200); GLUCOSE 81 mg/dL (75-110); POTASSIUM 4.3 mmol/L (3.6-5.0); TRIGLYCERIDES 168 mg/dL (<150)
[2019-02-26 06:44] LABS: DIRECT LDL 94 mg/dL (<100); VLDL CHOLESTEROL 33.6 mg/dL (10-31)
[2019-02-26] MEDS ORDERED: CLOPIDOGREL BISULFATE 75 MG TABLET PO SCH (10:00)
[2019-02-26] MEDS ORDERED: FAMOTIDINE 20 MG TABLET PO SCH (10:00)
[2019-02-26] MEDS ORDERED: FLUOXETINE HCL 20 MG CAPSULE PO SCH (10:00)
[2019-02-26] MEDS ORDERED: AMLODIPINE BESYLATE 10 MG TABLET PO SCH (10:00)
--- NOTE | 2019-02-26 12:45 | RADIOLOGY REPORT (SQ) ---
EXAM DESCRIPTION: MRI HEAD WITHOUT COMPLETED DATE/TIME: 02/26/2019 11:42 am REASON FOR STUDY: cva COMPARISON: MRI 2006, CT scan 02/25/2019 TECHNIQUE: Multiplanar imaging includes non-contrasted T1, T2, FLAIR, and Diffusion with ADC map seq uences. Images stored on PACS. LIMITATIONS: None. FINDINGS: ANATOMY: No anomalies. Normal vascular flow voids. Pituitary fossa normal. CSF SPACES: Normal in size and contour. No hemorrhage. CEREBRUM: A few high-signal intensity lesions scattered throughout the white matter on FLAIR imaging with distribution suggesting chronic micro-vascular ischemic change. Sulci and gyri normal in size a nd contour. No evidence of hemorrhage, mass or extraaxial fluid collection. POSTERIOR FOSSA: Prior surgical changes right CP angle. Appearance is very similar to the previous M RI in 2006. No findings to suggest recurrence although limited by lack of contrast. No hemorrhage. No mass effect. DIFFUSION: Negative for acute or sub-acute infarction. ORBITS: No masses. Globes normal. PARANASAL SINUSES: No fluid levels. Mucosa normal. OTHER: No other significant finding. IMPRESSION: MINIMAL MICROVASCULAR ISCHEMIC CHANGE. OTHERWISE NORMAL STUDY Surgical changes right CP angle. No obvious recurrence. No acute intracranial process. EVIDENCE OF ACUTE STROKE: NO. TECHNICAL DOCUMENTATION: JOB ID: [id number] [employer]- All Rights Reserved Reading location - IP/workstation name: [email or web address]
--- NOTE | 2019-02-26 13:15 | PDOC DISCHARGE SUMMARY ---
General - Admit/Disc Date/PCP Admission Date/Primary Care Provider: 02/25/19 21:21 BONNIE JENSEN, DO Discharge Date: 02/26/19 - Additional Information Resuscitation Status: Do Not Resuscitate Discharge Diet: As Tolerated Discharge Activity: Activity As Tolerated Home Medications: Cyanocobalamin (Vitamin B-12) [Vitamin B-12] 1,000 mcg PO DAILY 02/26/19 Ergocalciferol (Vitamin D2) [Drisdol 50,000 unit (1.25MG) Capsule] 50,000 unit PO HENDRIX 02/26/19 Hydrochlorothiazide [Hydrodiuril 25 mg Tablet] 25 mg PO QAM 02/26/19 Lorazepam [Ativan 1 mg Tablet] 1 mg PO Q8HP PRN 02/26/19 Metoprolol Succinate [Kapspargo Sprinkle] 25 mg PO DAILY 02/26/19 Multivitamin [Daily Multiple Vitamin] 1 each PO DAILY 02/26/19 Vilazodone HCl [Viibryd] 40 mg PO DAILY 02/26/19 History of Present Illness Patient complains of: None the same History of Present Illness: JOHN STEINBERG is a 68 year old female who was admitted with strokelike symptoms that was most likely contractible to medications. Hospital Course Hospital Course: Patient was admitted to [facility]. CAT scan showed no CVA, MRI showed no CVA. Patient insisted on going home at this time secondary to having family in from out of state. I discussed this with Dr. Villasenor we will have patient follow-up with her primary care practitioner and have her set up for outpatient echocardiogram in carotid Doppler. We will continue patient on aspirin 81 p.o. daily. Patient with no neurological deficits at this time. Cranial nerves II through XII are grossly intact. Physical Exam Vital Signs: Temp Pulse Resp BP Pulse Ox 97.4 F 78 17 111/64 98 02/26/19 04:41 02/26/19 12:00 02/26/19 12:00 02/26/19 12:00 02/26/19 12:00 Intake & Output 02/25/19 02/26/19 02/27/19 06:59 06:59 06:59 Output Total 500 Balance -500 Weight 82.1 kg General appearance: PRESENT: no acute distress, well-developed, well-nourished Head exam: PRESENT: atraumatic, normocephalic Eye exam: PRESENT: conjunctiva pink, EOMI, PERRLA. ABSENT: scleral icterus Ear exam: PRESENT: normal external ear exam Mouth exam: PRESENT: moist, tongue midline Neck exam: ABSENT: carotid bruit, JVD, lymphadenopathy, thyromegaly Respiratory exam: PRESENT: clear to auscultation chanell. ABSENT: rales, rhonchi, wheezes Cardiovascular exam: PRESENT: RRR. ABSENT: diastolic murmur, rubs, systolic murmur Pulses: PRESENT: normal dorsalis pedis pul Vascular exam: PRESENT: normal capillary refill GI/Abdominal exam: PRESENT: normal bowel sounds, soft. ABSENT: distended, guarding, mass, organolmegaly, rebound, tenderness Rectal exam: PRESENT: deferred Extremities exam: PRESENT: full ROM. ABSENT: calf tenderness, clubbing, pedal edema Neurological exam: PRESENT: alert, awake, oriented to person, oriented to place, oriented to time, oriented to situation, CN II-XII grossly intact. ABSENT: motor sensory deficit Psychiatric exam: PRESENT: appropriate affect, normal mood. ABSENT: homicidal ideation, suicidal ideation Skin exam: PRESENT: dry, intact, warm. ABSENT: cyanosis, rash Results Laboratory Results: 02/26/19 05:48 02/26/19 05:48 02/25/19 02/25/19 02/26/19 20:02 20:02 01:00 WBC 7.0 RBC 4.35 Hgb 12.5 Hct 37.0 MCV 85 MCH 28.6 MCHC 33.7 RDW 15.4 H Plt Count 289 Seg Neutrophils % 41.6 L Lymphocytes % 47.6 H Monocytes % 7.3 Eosinophils % 1.8 Basophils % 1.7 Absolute Neutrophils 2.9 Absolute Lymphocytes 3.3 Absolute Monocytes 0.5 Absolute Eosinophils 0.1 Absolute Basophils 0.1 Sodium 140.1 Potassium 4.3 Chloride 109 H Carbon Dioxide 26 Anion Gap 5 BUN 26 H Creatinine 0.73 Est GFR ( Amer) > 60 Est GFR (Non-Af Amer) > 60 Glucose 93 Calcium 8.8 Total Bilirubin 0.1 L AST 20 ALT 28 Alkaline Phosphatase 58 Total Protein 6.5 Albumin 3.7 Triglycerides Cholesterol LDL Cholesterol Direct VLDL Cholesterol HDL Cholesterol Urine Color YELLOW Urine Appearance SLIGHTLY-CLOUDY Urine pH 5.0 Ur Specific [place] 1.025 Urine Protein NEGATIVE Urine Glucose (UA) NEGATIVE Urine Ketones NEGATIVE Urine Blood NEGATIVE Urine Nitrite NEGATIVE Ur Leukocyte Esterase TRACE H Urine WBC (Auto) 2 Urine RBC (Auto) 0 02/26/19 02/26/19 05:48 05:48 WBC 7.3 RBC 4.09 Hgb 11.8 L Hct 34.8 L MCV 85 MCH 28.9 MCHC 33.9 RDW 15.8 H Plt Count 266 Seg Neutrophils % Lymphocytes % Monocytes % Eosinophils % Basophils % Absolute Neutrophils Absolute Lymphocytes Absolute Monocytes Absolute Eosinophils Absolute Basophils Sodium 140.9 Potassium 4.3 Chloride 110 H Carbon Dioxide 26 Anion Gap 5 BUN 25 H Creatinine 0.73 Est GFR ( Amer) > 60 Est GFR (Non-Af Amer) > 60 Glucose 81 Calcium 8.8 Total Bilirubin AST ALT Alkaline Phosphatase Total Protein Albumin Triglycerides 168 H Cholesterol 185.18 LDL Cholesterol Direct 94 VLDL Cholesterol 33.6 H HDL Cholesterol 56 Urine Color Urine Appearance Urine pH Ur Specific [place] Urine Protein Urine Glucose (UA) Urine Ketones Urine Blood Urine Nitrite Ur Leukocyte Esterase Urine WBC (Auto) Urine RBC (Auto) Impressions: Chest X-Ray 02/25/19 00:00 IMPRESSION: NO ACUTE RADIOGRAPHIC FINDING IN THE CHEST. Head CT 02/25/19 18:03 IMPRESSION: NORMAL BRAIN CT WITHOUT CONTRAST. EVIDENCE OF ACUTE STROKE: NO. Head MRI 02/26/19 00:00 IMPRESSION: MINIMAL MICROVASCULAR ISCHEMIC CHANGE. OTHERWISE NORMAL STUDY Surgical changes right CP angle. No obvious recurrence. No acute intracranial process. EVIDENCE OF ACUTE STROKE: NO. Qualifiers - * PATIENT BEING DISCHARGED WITH ANY OF THE FOLLOWING DIAGNOSIS: No Acute Heart Failure - Is this a Heart Failure Patient?: No Plan Time Spent: Greater than 30 Minutes
--- NOTE | 2019-02-26 13:16 | Progress Note Acknowledgement ---
Progress Note Acknowledgement Progess Note Acknowledgement: I, the undersigned member of the medical staff with appropriate privileges and with supervisory authority over [Octaviano Whipple], a dependent practice allied health professional, acknowledge that I have reviewed the progress notes entered on this patient, and in my professional judgment believe that the assessment made and/or any care evidenced was appropriate
[2019-02-26 13:58] VITALS: BP 131/70
== END 2019-02-26 14:20 | disposition home or self-care (01) ==
LOC: ER 17:37 → EH 21:21 → INTOOBSV 21:21 → 5 02-26 00:10 → EH 02-26 00:25 → 3W 02-26 01:50
PROVIDERS: ADMIT Emergency Medicine; ATTEND Emergency Medicine
DX: I63.512 Cerebral infarction due to unspecified occlusion or stenosis of left middle cerebral artery (principal); R47.1 Dysarthria and anarthria; R47.01 Aphasia; G81.91 Hemiplegia, unspecified affecting right dominant side; I10 Essential (primary) hypertension; M47.816 Spondylosis without myelopathy or radiculopathy, lumbar region; F34.1 Dysthymic disorder; R29.704 NIHSS score 4; Z66 Do not resuscitate; Z79.899 Other long term (current) drug therapy; Z86.018 Personal history of other benign neoplasm; Z98.890 Other specified postprocedural states; Z87.891 Personal history of nicotine dependence; Z82.49 Family history of ischemic heart disease and other diseases of the circulatory system
CPT/HCPCS: 93005; 99285; 36415 ×2; 82962; 80307 ×2; 85025; 85027; 85610; 85730; 80048; 80053; 81001; 80061; 70551; 71045; 70450; 93010; 97161; G0378; J1644; A9270 ×3; J3490

== ENCOUNTER 2019-12-12 16:15 | Emergency (ER) | payer OTHER, MEDICARE ==
[2019-12-12 17:05] LABS: ABSOLUTE BASOPHILS # (AUTO) 0.1 10^3/uL (0.0-0.2); ABSOLUTE EOSINOPHILS # (AUTO) 0.1 10^3/uL (0.0-0.6); ABSOLUTE LYMPHOCYTES (AUTO) 3.9 10^3/uL (0.5-4.7); ABSOLUTE MONOCYTES (AUTO) 0.6 10^3/uL (0.1-1.4); ABSOLUTE NEUT (AUTO) 4.9 10^3/uL (1.7-8.2); BASOPHILS % (AUTO) 0.9 % (0-2); HEMATOCRIT 40.1 % (36.0-47.0); HEMOGLOBIN 14.2 g/dL (12.0-15.5); LYMPHOCYTES % (AUTO) 41.1 % (13-45); MEAN CORPUSCULAR HEMOGLOBIN 30.5 pg (27.0-33.4); MEAN CORPUSCULAR HGB CONC 35.5 g/dL (32.0-36.0); MEAN CORPUSCULAR VOLUME 86 fl (80-97); MONOCYTES % (AUTO) 6.2 % (3-13); PLATELET COUNT 405 10^3/uL (150-450); RED BLOOD COUNT 4.67 10^6/uL (3.72-5.28); RED CELL DISTRIBUTION WIDTH 15.2 % (11.5-14.0); SEGMENTED NEUTROPHILS % (AUTO) 50.8 % (42-78); TOTAL CELLS COUNTED % (AUTO) 100 %; WHITE BLOOD COUNT 9.6 10^3/uL (4.0-10.5)
[2019-12-12 17:36] LABS: ALBUMIN 4.7 g/dL (3.5-5.0); ALKALINE PHOSPHATASE 57 U/L (38-126); ANION GAP 13 (5-19); ASPARTATE AMINO TRANSFERASE 35 U/L (14-36); BILIRUBIN,DIRECT 0.3 mg/dL (0.0-0.4); BILIRUBIN,TOTAL 0.6 mg/dL (0.2-1.3); BLOOD UREA NITROGEN 8 mg/dL (7-20); CALCIUM 9.5 mg/dL (8.4-10.2); CARBON DIOXIDE 22 mmol/L (22-30); CHLORIDE 98 mmol/L (98-107); CREATINE KINASE 220 U/L (30-135); GLUCOSE 99 mg/dL (75-110); POTASSIUM 4.5 mmol/L (3.6-5.0)
[2019-12-12 17:46] LABS: CREATINE KINASE MB 1.59 ng/mL (<4.55); TROPONIN I 0.018 ng/mL
[2019-12-12] MEDS ORDERED: NORMAL SALINE 1000 ML 1,000 ML IV ONE (18:27)
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
--- NOTE | 2019-12-12 19:52 | RADIOLOGY REPORT (SQ) ---
EXAM DESCRIPTION: CT CERVICAL SPINE WITHOUT IMAGES COMPLETED DATE/TIME: 12/12/2019 6:18 pm REASON FOR STUDY: trauma COMPARISON: None. TECHNIQUE: Axial images acquired through the cervical spine without intravenous contrast. Images re viewed with lung, soft tissue and bone windows. Reconstructed coronal and sagittal MPR images review ed. Images stored on PACS. All CT scanners at this facility use dose modulation, iterative reconstruction, and/or weight based d osing when appropriate to reduce radiation dose to as low as reasonably achievable (ALARA). [facility]: Dose Right [facility]: CareDose [facility]: Dose Right [facility]: Teradose 4D [facility]: [employer] RADIATION DOSE: CT Rad equipment meets quality standard of care and radiation dose reduction techniq ues were employed. CTDIvol: 27.2 mGy. DLP: 486 mGy-cm. mGy. LIMITATIONS: There is motion artifact and beam hardening artifact in the lower cervical spine which obscures some detail. FINDINGS: ALIGNMENT: Anatomic. MINERALIZATION: Normal. VERTEBRAL BODIES: No acute fracture or loss of vertebral body heights. Multilevel spondylosis with b ridging marginal osteophytes. Posterior projecting marginal osteophytes at C6 and C7. No lytic or b lastic bone lesions. There is moderate acquired spinal canal stenosis secondary to posterior project ing marginal osteophytes at these levels, with spinal canal measuring approximately 6 mm at C5-C6. DISCS: Multilevel degenerative disc disease with loss of intervertebral disc heights. FACETS, LATERAL MASSES, POSTERIOR ELEMENTS: No fractures. No dislocation. No acute findings. HARDWARE: None in the spine. VISUALIZED RIBS: Respiratory motion obscures detail. LUNG APICES AND SOFT TISSUES: Respiratory motion obscures detail. OTHER: No other significant finding. IMPRESSION: No acute fracture or dislocation of the cervical spine. Spondylosis and degenerative di sc disease with posterior projecting marginal osteophytes at C5-C6 contributing to moderate acquired spinal canal stenosis at this level. Clinical correlation for cord contusion or compression is recom mended. MRI of the cervical spine may provide additional information as clinically indicated. TECHNICAL DOCUMENTATION: JOB ID: [id number] Quality ID # 436: Final reports with documentation of one or more dose reduction techniques (e.g., Au tomated exposure control, adjustment of the mA and/or kV according to patient size, use of iterative reconstruction technique) 2010 [employer]- All Rights Reserved Reading location - IP/workstation name: [email or web address]
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
[2019-12-12 21:11] LABS: APPEARANCE,URINE CLEAR; BILIRUBIN,URINE NEGATIVE (NEGATIVE); COLOR,URINE STRAW; GLUCOSE, URINE NEGATIVE (NEGATIVE); KETONES,URINE NEGATIVE (NEGATIVE); PROTEIN,URINE NEGATIVE (NEGATIVE); URINE SPECIFIC GRAVITY 1.015; UROBILINOGEN,URINE NEGATIVE mg/dL (<2.0)
[2019-12-12 21:26] LABS: URINE AMPHETAMINES SCREEN NEGATIVE; URINE BARBITURATES SCREEN NEGATIVE; URINE BENZODIAZEPINES SCREEN NEGATIVE; URINE COCAINE SCREEN NEGATIVE; URINE METHADONE SCREEN NEGATIVE; URINE PHENCYCLIDINE SCREEN NEGATIVE
[2019-12-12 21:27] LABS: URINE MARIJUANA (THC) SCREEN UNCONFIRMED POSITIVE
--- NOTE | 2019-12-12 22:32 | EKG REPORT ---
SEVERITY:- ABNORMAL ECG - SINUS TACHYCARDIA BORDERLINE LEFT AXIS DEVIATION BORDERLINE R WAVE PROGRESSION, ANTERIOR LEADS BORDERLINE T ABNORMALITIES, DIFFUSE LEADS : Confirmed by: Christian Pena 12-Dec-2019 22:31:33
[2019-12-13 02:25] VITALS: BP 161/89
== END 2019-12-13 02:23 | disposition home or self-care (01) ==
LOC: ER 16:15
DX: S30.1XXA Contusion of abdominal wall, initial encounter (principal); F12.20 Cannabis dependence, uncomplicated; F10.929 Alcohol use, unspecified with intoxication, unspecified; R07.9 Chest pain, unspecified; R10.9 Unspecified abdominal pain; R51 Headache; M54.2 Cervicalgia; V87.7XXA Person injured in collision between other specified motor vehicles (traffic), initial encounter; I10 Essential (primary) hypertension; Z88.8 Allergy status to other drugs, medicaments and biological substances; Z79.899 Other long term (current) drug therapy
CPT/HCPCS: 93005; 99284; 96360; 96361; 36415; 82553; 80307 ×2; 82550; 85025; 80053; 81001; 84484; 70450; 71260; 72125; 74177; 93010; J7030